=== PATIENT | male | born 1955 | race Caucasian/White ===

== ENCOUNTER 2016-03-05 15:26 | Emergency (ER) | payer BC ==
[~2016-03-05] VITALS: Ht 172.7 cm; Wt 88.5 kg
[2016-03-05 15:52] VITALS: BP 139/92
[2016-03-05] MEDS ORDERED: AUGMENTIN 500-1 EACH ORAL (15:57)
[2016-03-05] MEDS ORDERED: TdaP Vaccine 0.5ml Syr IM ONE (16:00)
[2016-03-05 16:06] VITALS: BP 139/92
--- NOTE | 2016-03-05 16:23 | Emergency Room Report ---
History of Present Illness General Chief Complaint: Animal Bite Source: Patient Present Illness HPI The patient is a 61-year-old male presenting with a dog bite to the right thigh which occurred 5 days prior. The patient states that an unknown dog came up to him up he was walking and bit his leg. The patient states that he is now experiencing increased pain and has noticed swelling and redness of the area. Pain is described as a 9/10 dull constant ache it does not radiate. Pain worse with touch. Pt has not tried medications. Pt denies N, V, F, chills, numbness/ tingling of the leg. The patient does not remember his last tetanus shot. Allergies: Coded Allergies: No Known Allergies (Unverified , 03/05/16) Patient History Past Medical History: see triage record Pertinent Family History: none Reviewed Nursing Documentation: PMH: Agreed, PSxH: Agreed Nursing Documentation-PMH Past Medical History: No History, Except For Hx Hypertension: Yes Review of Systems All Other Systems: negative except mentioned in HPI Physical Exam Vital Signs Date Time Temp Pulse Resp B/P Pulse Ox O2 Delivery O2 Flow Rate FiO2 03/05/16 15:39 98.2 99 14 139/92 100 Room Air Sp02 EP Interpretation: reviewed, normal General Appearance: no apparent distress, alert, GCS 15, non-toxic Head: normocephalic, atraumatic Eyes: bilateral eye PERRL, bilateral eye normal inspection Musculoskeletal: back normal, digits/nails normal, gait/station normal, normal range of motion, no calf tenderness, swelling - R inner thigh, tender - TTP of R medial thigh Neurologic: alert, oriented x3, responsive, motor strength/tone normal, sensory intact, speech normal Psychiatric: judgement/insight normal, memory normal, mood/affect normal, no suicidal/homicidal ideation Skin: normal turgor, other - erythema of R medial thigh Lymphatic: no adenopathy Medical Decision Making PA Attestation Dr. Mccartney is my supervising physician. Patient management was discussed with my supervising physician Diagnostic Impression: Primary Impression: Dog bite Qualified Codes: W54.0XXA - Bitten by dog, initial encounter ER Course The patient is a 61-year-old male presenting with a dog bite to the right thigh which occurred 5 days prior DDx: cellulitis, abscess, contusion PE: Vitals WNL. NAD R thigh: There are 2 breaks in the skin medially. Well healed. Surrounding erythema. TTP. +edema to the area. No bleeding or DC. The pt was given a tetanus shot. The patient be discharged home with a prescription for Augmentin and will follow up with primary care doctor. Last Vital Signs Date Time Temp Pulse Resp B/P Pulse Ox O2 Delivery O2 Flow Rate FiO2 03/05/16 16:06 98.2 14 139/92 100 Room Air 03/05/16 15:39 99 Status: improved Disposition: HOME, SELF-CARE Condition: Improved Scripts Amoxicillin/Potassium Clav 500-125 Tablet* (AUGMENTIN 500-125 TABLET*) 1 Each Tablet 1 TAB ORAL Q8HR, #15 TAB Prov: MARCELLA RODRIGUEZ 03/05/16 Patient Instructions: Animal Bite Additional Instructions: I discussed my findings with the patient. All questions and concerns have been answered. Treatment and medication compliance have been addressed. I advised the patient that they need to follow up with PMD in 3-5 days. Return to ED if symptoms worsen, new symptoms arise, or if needed for any reason. Patient verbalized understanding of discharge instructions. MARCELLA RODRIGUEZ Mar 05, 2016 16:23
== END 2016-03-05 16:06 | disposition home or self-care (01) ==
LOC: EMR 16:06
DX: S71.151A Open bite, right thigh, initial encounter (principal); Z23 Encounter for immunization; I10 Essential (primary) hypertension; W54.0XXA Bitten by dog, initial encounter; Y93.K1 Activity, walking an animal; Y92.9 Unspecified place or not applicable; Y99.8 Other external cause status
CPT/HCPCS: 90471; 90715; 99283